=== PATIENT | female | born 1980 | race Caucasian/White ===

== ENCOUNTER 2016-09-17 11:20 | Emergency (ER) | payer SELFPAY ==
[~2016-09-17] VITALS: Ht 154.9 cm; Wt 84.1 kg
[2016-09-17] MEDS ORDERED: TOPI25 PO (12:12)
[2016-09-17] MEDS ORDERED: HYDR-309 PO (12:12)
[2016-09-17] MEDS ORDERED: LAMO25 PO (12:12)
[2016-09-17] MEDS ORDERED: HYDROCODONE/ACETAMINOPHEN 10-325 MG TABLET PO ONE (12:45)
[2016-09-17] MEDS ORDERED: KETOROLAC TROMETHAMINE 60 MG/2 ML VIAL IM ONE (12:45)
[2016-09-17 13:39] VITALS: BP 130/70
== END 2016-09-17 13:43 | disposition home or self-care (01) ==
LOC: EMS 11:23
DX: G44.209 Tension-type headache, unspecified, not intractable (principal); F17.210 Nicotine dependence, cigarettes, uncomplicated
CPT/HCPCS: 96372; 99283; J1885